=== PATIENT | male | born 1975 | race Caucasian/White ===

== ENCOUNTER 2017-02-06 16:04 | Emergency (ER) | payer SELFPAY ==
[2017-02-06] MEDS ORDERED: LACTATED RINGERS 1,000 ML IVS ONE ×4 (16:17→23:34)
[2017-02-06 16:23] VITALS: TEMP 98.5
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
[2017-02-06] MEDS ORDERED: CHLORHEXIDINE GLUCONATE 4 % 15 ML UD TOP ONE (18:40)
[2017-02-07] MEDS ORDERED: LACTATED RINGERS 1,000 ML IVS ONE (06:54)
[2017-02-07 09:02] VITALS: BP 131/84; O2SAT 96
== END 2017-02-07 09:34 | disposition home or self-care (01) ==
LOC: ER 16:04
DX: T75.4XXA Electrocution, initial encounter (principal); T23.052A Burn of unspecified degree of left palm, initial encounter; T23.051A Burn of unspecified degree of right palm, initial encounter; F17.200 Nicotine dependence, unspecified, uncomplicated; W86.8XXA Exposure to other electric current, initial encounter
CPT/HCPCS: 36415; 80053; 80069; 81001; 82550; 82553; 84484; 85025; 93005; J2060; J7120

== ENCOUNTER → 2019-08-18 | Outpatient (CLI) | payer OTHER | LOC: YCFC.O 15:41 | PROVIDERS: ATTEND Family Medicine | DX: Z20.828 Contact with and (suspected) exposure to other viral communicable diseases (principal) ==